=== PATIENT | male | born 1970 | race Two or more races ===

== ENCOUNTER → 2018-04-29 08:03 | Outpatient (CLI) | payer OTHER | END | disposition home or self-care (01) | LOC: LAB 08:03 | DX: D68.0 Von Willebrand disease (principal); K57.30 Diverticulosis of large intestine without perforation or abscess without bleeding; D68.8 Other specified coagulation defects; E55.9 Vitamin D deficiency, unspecified; D51.3 Other dietary vitamin B12 deficiency anemia; D50.8 Other iron deficiency anemias; D51.8 Other vitamin B12 deficiency anemias; I10 Essential (primary) hypertension; K90.89 Other intestinal malabsorption ==

== ENCOUNTER 2018-10-28 07:58 | Outpatient (CLI) | payer OTHER | END 2018-10-28 08:27 | disposition home or self-care (01) | LOC: LAB 07:58 | DX: D68.0 Von Willebrand disease (principal); K57.30 Diverticulosis of large intestine without perforation or abscess without bleeding; E55.9 Vitamin D deficiency, unspecified; D51.3 Other dietary vitamin B12 deficiency anemia; D50.8 Other iron deficiency anemias; D51.8 Other vitamin B12 deficiency anemias; I10 Essential (primary) hypertension; K90.89 Other intestinal malabsorption; E78.2 Mixed hyperlipidemia; E03.8 Other specified hypothyroidism; D68.8 Other specified coagulation defects ==

== ENCOUNTER → 2019-06-30 09:29 | Outpatient (CLI) | payer OTHER | END | disposition home or self-care (01) | LOC: LAB 09:29 | DX: D68.0 Von Willebrand disease (principal); K57.30 Diverticulosis of large intestine without perforation or abscess without bleeding; D68.8 Other specified coagulation defects; E55.9 Vitamin D deficiency, unspecified; D51.3 Other dietary vitamin B12 deficiency anemia; D50.8 Other iron deficiency anemias; D51.8 Other vitamin B12 deficiency anemias; D51.1 Vitamin B12 deficiency anemia due to selective vitamin B12 malabsorption with proteinuria; I10 Essential (primary) hypertension; E78.2 Mixed hyperlipidemia; E03.8 Other specified hypothyroidism ==

== ENCOUNTER → 2020-07-19 08:43 | Outpatient (CLI) | payer OTHER | END | disposition home or self-care (01) | LOC: LAB 08:43 | PROVIDERS: ATTEND Internal Medicine Hematology & Oncology | DX: D50.8 Other iron deficiency anemias (principal); I10 Essential (primary) hypertension; D51.8 Other vitamin B12 deficiency anemias; E55.9 Vitamin D deficiency, unspecified; D68.8 Other specified coagulation defects; D66 Hereditary factor VIII deficiency; R97.8 Other abnormal tumor markers; R97.0 Elevated carcinoembryonic antigen [CEA]; R97.20 Elevated prostate specific antigen [PSA]; K57.30 Diverticulosis of large intestine without perforation or abscess without bleeding; D51.3 Other dietary vitamin B12 deficiency anemia; C50.021 Malignant neoplasm of nipple and areola, right male breast ==

== ENCOUNTER → 2021-01-17 08:14 | Outpatient (CLI) | payer OTHER | END | disposition home or self-care (01) | LOC: LAB 08:14 | PROVIDERS: ATTEND Internal Medicine Hematology & Oncology | DX: D50.8 Other iron deficiency anemias (principal); I10 Essential (primary) hypertension; D51.8 Other vitamin B12 deficiency anemias; D68.8 Other specified coagulation defects; D69.1 Qualitative platelet defects; K57.30 Diverticulosis of large intestine without perforation or abscess without bleeding; D51.3 Other dietary vitamin B12 deficiency anemia; C50.021 Malignant neoplasm of nipple and areola, right male breast ==

== ENCOUNTER 2021-09-14 07:06 | Outpatient (CLI) | payer OTHER | END 2021-09-14 07:22 | disposition home or self-care (01) | LOC: LAB 07:06 | PROVIDERS: ATTEND Internal Medicine Hematology & Oncology | DX: D50.8 Other iron deficiency anemias (principal); R79.89 Other specified abnormal findings of blood chemistry; I10 Essential (primary) hypertension; R74.02 Elevation of levels of lactic acid dehydrogenase [LDH]; K76.89 Other specified diseases of liver; D51.1 Vitamin B12 deficiency anemia due to selective vitamin B12 malabsorption with proteinuria; D51.0 Vitamin B12 deficiency anemia due to intrinsic factor deficiency; E03.8 Other specified hypothyroidism; E06.3 Autoimmune thyroiditis; R97.0 Elevated carcinoembryonic antigen [CEA]; R97.8 Other abnormal tumor markers; R97.20 Elevated prostate specific antigen [PSA]; D63.1 Anemia in chronic kidney disease; D72.828 Other elevated white blood cell count; I12.9 Hypertensive chronic kidney disease with stage 1 through stage 4 chronic kidney disease, or unspecified chronic kidney disease; I70.213 Atherosclerosis of native arteries of extremities with intermittent claudication, bilateral legs ==

== ENCOUNTER 2022-03-06 10:12 | Outpatient (CLI) | payer OTHER | END 2022-03-06 10:20 | disposition home or self-care (01) | LOC: LAB 10:12 | PROVIDERS: ATTEND Internal Medicine Hematology & Oncology | DX: D50.8 Other iron deficiency anemias (principal); R79.9 Abnormal finding of blood chemistry, unspecified; I10 Essential (primary) hypertension; R74.02 Elevation of levels of lactic acid dehydrogenase [LDH]; K76.89 Other specified diseases of liver; D51.8 Other vitamin B12 deficiency anemias; E55.9 Vitamin D deficiency, unspecified; D68.8 Other specified coagulation defects; D69.1 Qualitative platelet defects; K57.30 Diverticulosis of large intestine without perforation or abscess without bleeding; D68.9 Coagulation defect, unspecified; D51.3 Other dietary vitamin B12 deficiency anemia; C50.021 Malignant neoplasm of nipple and areola, right male breast ==

== ENCOUNTER 2023-03-19 07:37 | Outpatient (CLI) | payer OTHER | END 2023-03-19 07:45 | disposition home or self-care (01) | LOC: LAB 07:37 | PROVIDERS: ATTEND Internal Medicine Hematology & Oncology | DX: D50.8 Other iron deficiency anemias (principal); R79.9 Abnormal finding of blood chemistry, unspecified; I10 Essential (primary) hypertension; R74.02 Elevation of levels of lactic acid dehydrogenase [LDH]; K76.89 Other specified diseases of liver; D51.8 Other vitamin B12 deficiency anemias; E55.9 Vitamin D deficiency, unspecified; D68.8 Other specified coagulation defects; D69.1 Qualitative platelet defects; K57.30 Diverticulosis of large intestine without perforation or abscess without bleeding; D51.3 Other dietary vitamin B12 deficiency anemia; C50.021 Malignant neoplasm of nipple and areola, right male breast ==

== ENCOUNTER → 2023-09-17 07:06 | Outpatient (CLI) | payer OTHER ==
[2023-09-17 08:54] LABS: HEMATOCRIT 41.9 % (39.0-48.0); HEMOGLOBIN 13.8 g/dL (13-16.00); MEAN CELL VOLUME 89.6 fL (80.0-100.00); MEAN CORPUSCULAR HEMOGLOBIN 29.5 pg (27.00-32.0); MEAN CORPUSCULAR HGB CONC 32.9 g/dl (32.0-36.0); PLATELET COUNT 251 K/uL (150-450); RED BLOOD COUNT 4.68 M/uL (4.00-6.00); RED CELL DISTRIBUTION WIDTH 14.4 % (11.5-14.5)
[2023-09-17 09:17] LABS: ALBUMIN 4.1 gm/dL (3.4-5.0); BILIRUBIN TOTAL 0.59 mg/dL (0.3-1.2); CALCIUM 9.2 mg/dL (8.5-10.1); CREATININE SERUM 0.72 mg/dL (0.70-1.30); GFR 113.34; GLOBULINA 3.2 G/DL (2.4-3.5); POTASSIUM 4.56 mEq/L (3.5-5.1); TOTAL PROTEIN 7.3 gm/dL (6.4-8.2)
[2023-09-17 09:23] LABS: INR 1.01; PARTIAL THROMBOPLASTIN TIME 28.6 SECONDS (22.0-34.0); PROTHROMBIN TIME 10.6 SECONDS (9.0-11.5)
[2023-09-17 10:13] LABS: COL EPI 138 SECONDS (82-175)
[2023-09-18 12:40] LABS: FOLIC ACID > 20.00 ng/ml (4.78-20)
[2023-09-19 09:00] LABS: MANUAL PLATELET COUNT 278
[2023-09-19 09:02] LABS: PLATELET ESTIMATE NORMAL (NORMAL)
== END | disposition home or self-care (01) ==
LOC: LAB 07:06
PROVIDERS: ATTEND Internal Medicine Hematology & Oncology
DX: D50.8 Other iron deficiency anemias (principal); R79.9 Abnormal finding of blood chemistry, unspecified; I10 Essential (primary) hypertension; R74.02 Elevation of levels of lactic acid dehydrogenase [LDH]; K76.89 Other specified diseases of liver; D51.8 Other vitamin B12 deficiency anemias; E55.9 Vitamin D deficiency, unspecified; D68.8 Other specified coagulation defects; D69.1 Qualitative platelet defects; R97.0 Elevated carcinoembryonic antigen [CEA]; R97.8 Other abnormal tumor markers; K57.30 Diverticulosis of large intestine without perforation or abscess without bleeding; D68.9 Coagulation defect, unspecified; D51.3 Other dietary vitamin B12 deficiency anemia; C50.021 Malignant neoplasm of nipple and areola, right male breast; D68.09 Other von Willebrand disease

== ENCOUNTER → 2023-12-22 06:36 | Outpatient (CLI) | payer OTHER ==
[2023-12-22 07:13] LABS: HEMATOCRIT 40.5 % (39.0-48.0); HEMOGLOBIN 13.7 g/dL (13-16.00); MEAN CORPUSCULAR HEMOGLOBIN 29.8 pg (27.00-32.0); MEAN CORPUSCULAR HGB CONC 33.9 g/dl (32.0-36.0); PLATELET COUNT 247 K/uL (150-450); RED CELL DISTRIBUTION WIDTH 14.6 % (11.5-14.5)
[2023-12-22 07:34] LABS: ALBUMIN 4.1 gm/dL (3.4-5.0); BILIRUBIN TOTAL 0.94 mg/dL (0.3-1.2); CREATININE SERUM 0.72 mg/dL (0.70-1.30); GFR 113.34; GLOBULINA 2.8 G/DL (2.4-3.5); POTASSIUM 3.85 mEq/L (3.5-5.1); TOTAL PROTEIN 6.9 gm/dL (6.4-8.2)
[2023-12-22 12:10] LABS: FOLIC ACID > 20.00 ng/ml (4.78-20)
[2023-12-23 12:19] LABS: MANUAL PLATELET COUNT 510
[2023-12-23 12:20] LABS: PLATELET ESTIMATE INCREASED (NORMAL)
== END | disposition home or self-care (01) ==
LOC: LAB 06:36
PROVIDERS: ATTEND Internal Medicine Hematology & Oncology
DX: K57.30 Diverticulosis of large intestine without perforation or abscess without bleeding (principal); D68.9 Coagulation defect, unspecified; E55.9 Vitamin D deficiency, unspecified; D57.3 Sickle-cell trait

== ENCOUNTER 2024-06-30 07:48 | Outpatient (CLI) | payer OTHER ==
[2024-06-30 09:49] LABS: HEMATOCRIT 38.9 % (39.0-48.0); HEMOGLOBIN 13.4 g/dL (13-16.00); MEAN CELL VOLUME 88.6 fL (80.0-100.00); MEAN CORPUSCULAR HEMOGLOBIN 30.4 pg (27.00-32.0); MEAN CORPUSCULAR HGB CONC 34.3 g/dl (32.0-36.0); PLATELET COUNT 241 K/uL (150-450); RED BLOOD COUNT 4.39 M/uL (4.00-6.00); RED CELL DISTRIBUTION WIDTH 14.1 % (11.5-14.5)
[2024-06-30 10:15] LABS: COL EPI 115 SECONDS (82-175)
[2024-06-30 10:16] LABS: ALBUMIN 4.1 gm/dL (3.4-5.0); BILIRUBIN TOTAL 0.78 mg/dL (0.3-1.2); CALCIUM 9.1 mg/dL (8.5-10.1); CREATININE SERUM 0.68 mg/dL (0.70-1.30); GFR 120.63; GLOBULINA 3.1 G/DL (2.4-3.5); POTASSIUM 4.2 mEq/L (3.5-5.1); PROSTATIC SPECIFIC ANTIGEN 2.62 NG/ML (0.010-4.00); TOTAL PROTEIN 7.2 gm/dL (6.4-8.2)
[2024-06-30 10:17] LABS: INR 1.04; PARTIAL THROMBOPLASTIN TIME 31.7 SECONDS (22.0-34.0); PROTHROMBIN TIME 11.3 SECONDS (9.0-11.5)
[2024-07-02 09:53] LABS: MANUAL PLATELET COUNT 400
[2024-07-02 09:54] LABS: PLATELET ESTIMATE NORMAL (NORMAL)
[2024-07-02 14:02] LABS: FOLIC ACID > 20.00 ng/ml (4.78-20)
[2024-07-05 15:11] LABS: FACTOR VIII ACTIVITY 109 % (56-140); VON WILLERBRAND ACTIVITY 79 % (50-200); VON WILLERBRAND ANTIGEN 132 % (50-200)
== END 2024-06-30 07:49 | disposition home or self-care (01) ==
LOC: LAB 07:48
PROVIDERS: ATTEND Internal Medicine Hematology & Oncology
DX: D68.01 Von Willebrand disease, type 1 (principal); K57.30 Diverticulosis of large intestine without perforation or abscess without bleeding; D68.9 Coagulation defect, unspecified; E55.9 Vitamin D deficiency, unspecified; D51.3 Other dietary vitamin B12 deficiency anemia; C50.021 Malignant neoplasm of nipple and areola, right male breast; D50.8 Other iron deficiency anemias; R79.9 Abnormal finding of blood chemistry, unspecified; I10 Essential (primary) hypertension; R74.02 Elevation of levels of lactic acid dehydrogenase [LDH]; K76.89 Other specified diseases of liver; D51.8 Other vitamin B12 deficiency anemias; D68.8 Other specified coagulation defects; R97.8 Other abnormal tumor markers; R97.0 Elevated carcinoembryonic antigen [CEA]; D69.1 Qualitative platelet defects

== ENCOUNTER → 2024-12-26 11:35 | Outpatient (CLI) | payer OTHER ==
[2024-12-26 13:12] LABS: HEMATOCRIT 51.8 % (39.0-48.0); HEMOGLOBIN 17.1 g/dL (13-16.00); MEAN CELL VOLUME 88.6 fL (80.0-100.00); MEAN CORPUSCULAR HEMOGLOBIN 29.3 pg (27.00-32.0); MEAN CORPUSCULAR HGB CONC 33.1 g/dl (32.0-36.0); PLATELET COUNT 257 K/uL (150-450); RED BLOOD COUNT 5.85 M/uL (4.00-6.00); RED CELL DISTRIBUTION WIDTH 15.7 % (11.5-14.5)
[2024-12-26 13:32] LABS: INR 1.07; PARTIAL THROMBOPLASTIN TIME 30.1 SECONDS (22.0-34.0); PROTHROMBIN TIME 11.6 SECONDS (9.0-11.5)
[2024-12-26 13:50] LABS: COL EPI 109 SECONDS (82-175)
[2024-12-26 13:56] LABS: ALBUMIN 4.2 gm/dL (3.4-5.0); BILIRUBIN TOTAL 1.66 mg/dL (0.3-1.2); CALCIUM 9.1 mg/dL (8.5-10.1); CREATININE SERUM 0.78 mg/dL (0.70-1.30); GFR 102.96; GLOBULINA 2.9 G/DL (2.4-3.5); POTASSIUM 4.49 mEq/L (3.5-5.1); PROSTATIC SPECIFIC ANTIGEN 3.41 NG/ML (0.010-4.00); TOTAL PROTEIN 7.1 gm/dL (6.4-8.2)
[2024-12-26 14:11] LABS: FOLIC ACID > 20.00 ng/ml (4.78-20)
[2024-12-27 09:45] LABS: MANUAL PLATELET COUNT 312
[2024-12-27 09:48] LABS: PLATELET ESTIMATE NORMAL (NORMAL)
== END | disposition home or self-care (01) ==
LOC: LAB 11:35
PROVIDERS: ATTEND Internal Medicine Hematology & Oncology
DX: D68.01 Von Willebrand disease, type 1 (principal); K57.30 Diverticulosis of large intestine without perforation or abscess without bleeding; D68.9 Coagulation defect, unspecified; E55.9 Vitamin D deficiency, unspecified; D51.3 Other dietary vitamin B12 deficiency anemia; C50.021 Malignant neoplasm of nipple and areola, right male breast; D50.8 Other iron deficiency anemias; R79.9 Abnormal finding of blood chemistry, unspecified; I10 Essential (primary) hypertension; R74.02 Elevation of levels of lactic acid dehydrogenase [LDH]; K76.89 Other specified diseases of liver; D68.8 Other specified coagulation defects; D69.1 Qualitative platelet defects; R97.0 Elevated carcinoembryonic antigen [CEA]

== ENCOUNTER 2025-06-29 07:46 | Outpatient (CLI) | payer OTHER ==
[2025-06-29 09:53] LABS: BASO % 0.5 % (0.1-1.2); EOS # 0.11 (0.04-0.54); EOS % 1.5 % (0.7-7.0); LYMPH # 1.04 (1.18-3.74); LYMPH % 14.0 % (19.3-53.1); MEAN PLATELET VOLUME 11.30 fl (9.4-12.4); MONO # 0.68 (0.24-0.82); MONO % 9.2 % (4.7-12.5); NEUT # 5.53 (1.56-6.13); NEUT % 74.4 % (34.0-71.1); RED CELL DISTRIBUTION WIDTH 12.5 % (11.6-14.4)
[2025-06-29 10:28] LABS: ALT/SGPT 37.0 U/L (12-78); AST/SGOT 20.0 U/L (15-37); BILIRUBIN TOTAL 0.69 mg/dL (0.3-1.2); BUN CREA RATIO 23.0 (7.0-25.0); CREATININE SERUM 0.64 mg/dL (0.70-1.30); FE 68.0 ug/dl (65-175); GFR 128.9; GLOBULINA 2.8 G/DL (2.4-3.5); GLUCOSE FASTING 101.0 mg/dL (65-100); LDH 167.0 U/L (87-241); OSMOLALITY SERUM 282.0 MOSM/KG (275-295); PROSTATIC SPECIFIC ANTIGEN 3.14 NG/ML (0.010-4.00)
[2025-06-29 11:12] LABS: URINE BILIRRUBIN NEGATIVE (NEGATIVE); URINE BLOOD SMALL; URINE GLUCOSE NEGATIVE (NEGATIVE); URINE KETONE NEGATIVE (NEGATIVE); URINE LEUKOCYTE NEGATIVE; URINE NITRATE NEGATIVE; URINE PROTEIN NEGATIVE (NEGATIVE); URINE UROBILINOGEN 0.2 E.U./dl
[2025-06-29 11:40] LABS: URINE APPEARANCE CLEAR; URINE COLOR YELLOW
[2025-06-29 11:41] LABS: URINE BACTERIA FEW; URINE CRYSTALS NEGATIVE /HPF; URINE EPITHELIAL CELLS 0-4 /HPF; URINE MUCUS NEGATIVE; URINE RBC 0-3 /HPF; URINE WBC 0-2 /hpf
[2025-07-01 12:03] LABS: FOLIC ACID > 20.00 ng/ml (4.78-20)
[2025-07-01 12:04] LABS: VITAMIN D3 25 HYDROXY 117.70 ng/ml (30-120)
== END 2025-06-29 07:59 | disposition home or self-care (01) ==
LOC: LAB 07:46
PROVIDERS: ATTEND Internal Medicine Hematology & Oncology
DX: D50.8 Other iron deficiency anemias (principal); R79.9 Abnormal finding of blood chemistry, unspecified; I10 Essential (primary) hypertension; R74.02 Elevation of levels of lactic acid dehydrogenase [LDH]; K76.89 Other specified diseases of liver; R97.0 Elevated carcinoembryonic antigen [CEA]; D68.01 Von Willebrand disease, type 1; K57.30 Diverticulosis of large intestine without perforation or abscess without bleeding; D68.9 Coagulation defect, unspecified; E55.9 Vitamin D deficiency, unspecified; D51.3 Other dietary vitamin B12 deficiency anemia; C50.021 Malignant neoplasm of nipple and areola, right male breast; N40.1 Benign prostatic hyperplasia with lower urinary tract symptoms; R97.20 Elevated prostate specific antigen [PSA]; N20.0 Calculus of kidney; N52.9 Male erectile dysfunction, unspecified

== ENCOUNTER 2025-07-20 07:40 | Outpatient (CLI) | payer OTHER ==
[2025-07-20 08:57] LABS: BASO % 0.4 % (0.1-1.2); EOS # 0.11 (0.04-0.54); EOS % 0.9 % (0.7-7.0); LYMPH # 1.39 (1.18-3.74); LYMPH % 11.8 % (19.3-53.1); MEAN PLATELET VOLUME 9.80 fl (9.4-12.4); MONO # 0.73 (0.24-0.82); MONO % 6.2 % (4.7-12.5); NEUT # 9.41 (1.56-6.13); NEUT % 80.1 % (34.0-71.1); RED CELL DISTRIBUTION WIDTH 12.4 % (11.6-14.4)
[2025-07-20 09:00] LABS: URINE APPEARANCE Clear; URINE BILIRRUBIN Negative (NEGATIVE); URINE BLOOD Small; URINE COLOR Yellow; URINE GLUCOSE Negative (NEGATIVE); URINE KETONE Negative (NEGATIVE); URINE LEUKOCYTE Negative; URINE NITRATE Negative; URINE PROTEIN Negative (NEGATIVE); URINE UROBILINOGEN 0.2 E.U./dl
[2025-07-20 09:01] LABS: URINE BACTERIA 11.9 uL (0.0-1933); URINE EPITHELIAL CELLS 3.5 uL (0.0-38.8); URINE RBC 21.7 uL (0.0-20.8); URINE WBC 5.5 uL (0.0-23.2)
[2025-07-20 09:27] LABS: ALT/SGPT 40.0 U/L (12-78); AST/SGOT 19.0 U/L (15-37); BILIRUBIN TOTAL 0.76 mg/dL (0.3-1.2); BUN CREA RATIO 18.0 (7.0-25.0); CREATININE SERUM 0.73 mg/dL (0.70-1.30); GFR 110.74; GLOBULINA 3.0 G/DL (2.4-3.5); GLUCOSE FASTING 108.0 mg/dL (65-100); LDH 163.0 U/L (87-241); OSMOLALITY SERUM 276.0 MOSM/KG (275-295)
[2025-07-20 09:51] LABS: URINE CAST 0.00 uL (0.0-1.40)
== END 2025-07-20 11:05 | disposition home or self-care (01) ==
LOC: LAB 07:40
PROVIDERS: ATTEND Internal Medicine Hematology & Oncology
DX: D50.8 Other iron deficiency anemias (principal); I10 Essential (primary) hypertension; R74.02 Elevation of levels of lactic acid dehydrogenase [LDH]; K76.89 Other specified diseases of liver; N39.0 Urinary tract infection, site not specified; D68.01 Von Willebrand disease, type 1; K57.30 Diverticulosis of large intestine without perforation or abscess without bleeding; D68.9 Coagulation defect, unspecified; E55.9 Vitamin D deficiency, unspecified; D51.3 Other dietary vitamin B12 deficiency anemia; C50.021 Malignant neoplasm of nipple and areola, right male breast